=== PATIENT | female | born 1945 | race Caucasian/White ===

== ENCOUNTER 2023-05-08 09:59 | Outpatient (OUT) | payer MEDICARE, SELFPAY ==
--- NOTE | 2023-05-08 10:02 | MM_ITS ---
Patient Name: FESTUS CUNNINGHAM MR#: [id number] : 1945 Exam Date: 05/08/2023 Ordering Doctor: DR DAYRON ALLEN D.O. RADIOLOGY REPORT PROCEDURE: MM TOMOSYNTHESIS SCREENING BI COMPARISON: MG MAMM SCREEN 3D PETE CAD, 01/17/2022. MG MAMM SCREEN 3D PETE CAD, 12/26/2020. INDICATIONS: Screening Calculator Name NCI Breast Cancer Risk Assessment Tool 5 Year Breast Cancer Risk 2.30% Lifetime Breast Cancer Risk 4.70% Personal Breast Cancer No Personal Ovarian Cancer No Treatments None Family Cancers Brother with bladder cancer at age ~62; Grandmother-paternal with uterine cancer at age 64. LOCATION: [facility] BREAST COMPOSITION: Scattered areas fibroglandular density. FINDINGS: DIAGNOSTIC CATEGORY 2--BENIGN FINDING. NO CHANGE FROM COMPARISON. Scattered benign-appearing nodules are present. Scattered benign-appearing calcifications are present. Scattered benign-appearing lymph nodes are present. RIGHT BREAST: No significant suspicious finding. LEFT BREAST: No significant suspicious finding. RECOMMENDATIONS: ROUTINE MAMMOGRAM AND CLINICAL EVALUATION IN 12 MONTHS. PLEASE NOTE: A NORMAL MAMMOGRAM DOES NOT EXCLUDE THE POSSIBILITY OF BREAST CANCER. A CLINICALLY SUSPICIOUS PALPABLE LUMP SHOULD BE BIOPSIED. Dictated by: Kirk Espinoza MD on 05/09/2023 at 07:46 Approved by: Kirk Espinoza MD on 05/09/2023 at 07:48
== END 2023-05-08 10:00 | disposition home or self-care (01) ==
LOC: MAMMO 09:59
PROVIDERS: PCP Internal Medicine; Visit Provider Internal Medicine
DX: Z12.31 Encounter for screening mammogram for malignant neoplasm of breast (principal); Z80.52 Family history of malignant neoplasm of bladder; Z80.8 Family history of malignant neoplasm of other organs or systems
CPT/HCPCS: 77063; 77067

== ENCOUNTER 2024-07-02 10:09 | Outpatient (OUT) | payer MEDICARE, SELFPAY ==
--- NOTE | 2024-07-02 10:12 | MM_ITS ---
Patient Name: FESTUS CUNNINGHAM MR#: [id number] : 1945 Exam Date: 07/02/2024 Ordering Doctor: DR DAYRON ALLEN D.O. RADIOLOGY REPORT PROCEDURE: MM TOMOSYNTHESIS SCREENING BI COMPARISON: MM TOMOSYNTHESIS SCREENING BI, 05/08/2023. MG MAMM SCREEN 3D PETE CAD, 01/17/2022. INDICATIONS: Screening Calculator Name NCI Breast Cancer Risk Assessment Tool 5 Year Breast Cancer Risk 2.30% Lifetime Breast Cancer Risk 4.40% Personal Breast Cancer No Personal Ovarian Cancer No Treatments None Family Cancers Brother with bladder cancer at age ~62; Grandmother-paternal with uterine cancer at age 64. LOCATION: [facility] BREAST COMPOSITION: There are scattered areas of fibroglandular density. FINDINGS: DIAGNOSTIC CATEGORY 2--BENIGN FINDING. NO CHANGE FROM COMPARISON. Scattered benign-appearing calcifications are present. RIGHT BREAST: No significant suspicious finding. Square marker indicates a skin tag/mole 6 o'clock at the chest wall LEFT BREAST: No significant suspicious finding. RECOMMENDATIONS: ROUTINE MAMMOGRAM AND CLINICAL EVALUATION IN 12 MONTHS. PLEASE NOTE: A NORMAL MAMMOGRAM DOES NOT EXCLUDE THE POSSIBILITY OF BREAST CANCER. A CLINICALLY SUSPICIOUS PALPABLE LUMP SHOULD BE BIOPSIED. Dictated by: Kirk Espinoza MD on 07/02/2024 at 11:55 Approved by: Kirk Espinoza MD on 07/02/2024 at 11:57
== END 2024-07-02 10:10 | disposition home or self-care (01) ==
LOC: MAMMO 10:09
PROVIDERS: PCP Internal Medicine; Visit Provider Internal Medicine
DX: Z12.31 Encounter for screening mammogram for malignant neoplasm of breast (principal); Z80.52 Family history of malignant neoplasm of bladder; Z80.8 Family history of malignant neoplasm of other organs or systems
CPT/HCPCS: 77063; 77067

== ENCOUNTER 2024-11-27 10:01 | Outpatient (OUT) | payer MEDICARE, SELFPAY ==
--- OUTSIDE RECORDS SUMMARY | 2024-11-24 14:00 | XMS_ITS | Encounter Summary ---
Author Organization [facility] Address [address] [place] [address] Care Team Providers Care Autobody Technician Name Role Phone Fuentes Woodson MD Primary Care Provider [phone] Encounter Details Date Type Department Care Team (Latest Contact Info) Description 11/24/2024 2:00 PM EDT Ancillary Procedure [facility] [address] [place] [address] Encounter for checking and testing of cardiac pacemaker pulse generator (battery) Social History Tobacco Use Types Packs/Day Years Used Date Smoking Tobacco: Never Smokeless Tobacco: Never Alcohol Use Standard Drinks/Week Comments Never 0 (1 standard drink = 0.6 oz pur e alcohol) [place] Safety & Environment Answer Date Rec orded Fear of Current or Ex-Partner Not on file Emotionally Abused Not on file 08/15/2023 Physically Abused Not on file 08/15/2023 Sexually Abused Not on file 08/15/2023 Physically or Sexually Abused Not on file Sex and Gender Information Value Date Recorded Sex Assigned at Not on file Gender Identity Not on file Sexual Orientation Not on file documented as of this encounter Plan of Treatment Pending Results Name Type Priority Associated Diagnoses Date /Time Cardiac device check - In Clinic Implantable Cardiac Device Routine Encounter for checking and testing of cardiac pacemaker pulse generator (battery) 11/24/2024 5:39 PM EDT documented as of this encounter Visit Diagnoses Diagnosis Encounter for checking and testing of cardiac pacemaker pulse generator (battery) documented in this encounter Care Teams Autobody Technician Relationship Specialty Start Date End Date Fuentes Woodson MD [address] [place] [id number] PCP - General 10/03/22 documented as of this encounter
--- NOTE | 2024-11-27 10:00 | CA_ITS ---
Patient Name: FESTUS CUNNINGHAM MR#: [id number] : 1945 Exam Date: 11/27/2024 Ordering Doctor: BERNABE CRUMP CNP ECHOCARDIOGRAM REPORT PROCEDURE: CA ECHO DOPPLER COMPLETE INDICATIONS: Chronic systolic heart failure, pacemaker, hypertension, diabetes COMPARISON: None. DESCRIPTION: COMPLETE ECHOCARDIOGRAM Real-time transthoracic echocardiography with 2D, M-mode, spectral and color flow Doppler performed. QUALITY: Technical quality was fair. LEFT VENTRICLE: Normal chamber size. Normal left ventricular wall thickness. Systolic function is difficult to assess due to poor sound transmission but appears at the lower limits of normal. LV EF: Low normal left ventricular ejection fraction, (50%). DIASTOLIC: Grade I diastolic dysfunction. ATRIAL SEPTUM: Visually appears intact. LEFT ATRIUM: Moderate dilatation. RIGHT ATRIUM: Normal chamber size. RIGHT VENTRICLE: Normal chamber size. Normal right ventricular systolic function. TRICUSPID VALVE: Normal mobility and thickness. No stenosis with trivial regurgitation. No evidence of pulmonary hypertension. RVSP 30 mmHg MITRAL VALVE: Normal mobility and thickness. No evidence of mitral valve stenosis. There is no mitral annular calcification. No mitral regurgitation. AORTIC VALVE: Normal trileaflet appearance. No visible sclerosis. Normal leaflet mobility. No evidence of aortic valve stenosis. No aortic regurgitation. AORTIC ROOT: Normal diameter and appearance, measuring 2.9 cm. Ascending aorta is normal in size, measuring 3.1 cm. PULMONIC VALVE: Normal thickness and mobility. No stenosis. No regurgitation. PERICARDIUM: No evidence of pericardial effusion. IVC: Collapses with inspirations. PLEURA: CONCLUSION: 1. Normal left ventricular size and systolic function. Systolic function is difficult to assess due to poor sound transmission but appears at the lower limits of normal. Estimated LVEF is 50%. 2. Mild diastolic dysfunction. 3. Normal right ventricular size and systolic function. 4. No significant valvular dysfunction. 5. Normal right-sided pressures. Adult Echocardiography Procedure Report Left Ventricle LVEDD (3.7 - 5.6 cm): 5.38 cm LVESD (2.2 - 4.0 cm): 4.40 cm LVIVS thickness (0.6 - 1.2 cm): 0.97 cm LVPW thickness (0.5 - 1.0 cm): 0.93 cm e': 0.03 m/s E - e': 14.17 LVOT Max Gradient: 1.67 mm[Hg] LVOT Area (cm2): 0.65 m/s Peak Velocity (LVOT): 0.65 m/s LVOT Diameter 2.35 cm Left Atrium LA Volume Index (2D A2C): 46.29 ml/m2 Left Atrium Systolic Dimension: 4.07 cm Mitral Valve MV E to A Ratio: 0.60 Mitral Valve A-Wave Peak Velocity: 0.80 m/s Mitral Valve E-Wave Peak Velocity: 0.48 m/s Right Ventricle Aorta AO Root Diam: 2.94 cm Ascending Ao Diam: 3.07 cm Aortic Valve AoV Area (Peak Art): 2.35 cm2, 2.35 cm2 Peak Velocity(Antegrade Flow): 1.19 m/s Peak Gradient(Antegrade Flow): 5.66 mm[Hg] Tricuspid Valve Peak Velocity (Regurgitant Flow): 2.58 m/s Pulmonic Valve Peak Gradient: 4.18 mm[Hg], 5.35 mm[Hg] Right Atrium Right Atrium Systolic Pressure: 56.10 ml, 56.10 ml Dictated by: Meng Bell M.D. on 11/27/2024 at 17:43 Approved by: Meng Bell M.D. on 11/27/2024 at 17:47
--- OUTSIDE RECORDS SUMMARY | 2024-11-27 10:08 | XMS_ITS | Clinical Summary ---
Author Organization [facility] Address [address] [place] [address] Care Team Providers Care Refractory Grinder Operator Name Role Phone Fuentes Woodson MD Primary Care Provider [phone] Allergies No known active allergies Medications Medication Sig Dispensed Refills Start Date End Date Status acarbose (Precose) 100 mg tablet Take 100 mg by mouth in the morning and at bedtime. Active aspirin 81 mg EC tablet Take 81 mg by mouth in the morning. Active atorvastatin (Lipitor) 40 mg tablet Take 40 mg by mouth in the morning. Active montelukast (Singulair) 10 mg tablet Take 10 mg by mouth at bedtime. Active sacubitriL-valsartan (Entresto) 49-51 mg tablet Take 1 tablet by mouth in the morning and at bedtime. Active metoprolol succinate XL (Toprol-XL) 50 mg 24 hr tabletIndications:Paro xysmal supraventricular tachycardia Take 1 tablet (50 mg) by mouth in the morning. Do not crush or chew. 90 tablet 11/02/2024 5 Active Farxiga 10 mg Take 10 mg by mouth in the morning. 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 11/10/2024 Chronic systolic congestive heart failure 2022 Symptomatic bradycardia 10/03/2022 S/P placement of cardiac pacemaker 10/03/2022 Sinus node dysfunction 10/03/2022 Syncope and collapse 09/24/2022 Overview (09/24/2022): Added automatically from request for surgery [id number] Encounters Date Type Department Care Team Description 11/24/2024 2:00 PM EDT Ancillary Procedure [address] [address] Encounter for checking and testing of cardiac pacemaker pulse generator (battery) 11/10/2024 9:20 AM EDT Office Visit [address] [address] Rachna Joel CNP Chronic systolic heart failure (CMS/HCC) (Primary Dx); Sinus node dysfunction (CMS/HCC); S/P placement of cardiac pacemaker; Benign hypertensive heart disease with heart failure (CMS/HCC); Mixed hyperlipidemia 11/02/[address] [address] Uma Domínguez MA Paroxysmal supraventricular tachycardia 10/21/[address] [place] [address] Dirk Colvin MD Paroxysmal supraventricular tachycardia 09/07/2024 12:50 PM EDT Ancillary Procedure [facility] [address] [place] [address] Adjustment and management of cardiac pacemaker from Last 3 Months Family History Relation Name Status Comments Father Mother Social History Tobacco Use Types Packs/Day Years Used Date Smoking Tobacco: Never Smokeless Tobacco: Never Tobacco Cessation:Counseling Given: Not Answered Alcohol Use Standard Drinks/Week Comments Never 0 [...] on file Sexual Orientation Not on file Last Filed Vital Signs Vital Sign Reading Time Taken Comments Blood Pressure 135/82 11/10/2024 9:27 AM EDT Pulse 62 11/10/2024 9:27 AM EDT Temperature - - Respiratory Rate 16 09/24/2022 7:07 PM EDT Oxygen Saturation 93% 11/10/2024 9:27 AM EDT Inhaled Oxygen Concentration - - Weight 90.7 kg (200 lb) 11/10/2024 9:27 AM EDT Height 162.6 cm (5' 4 ) 11/10/2024 9:27 AM EDT Body Mass Index 34.33 11/10/2024 9:27 AM EDT Plan of Treatment Health Maintenance Due Date Last Done Comments Medicare Annual Wellness (AWV) 1945 Pneumococcal Vaccine: 65+ Ye ars (1 of 2 - PCV) 1952 Depression Screening 1958 Adult Tetanus 1968 Zoster Vaccines (1 of 2) 1996 Fall Risk Screening 2011 COVID-19 Vaccine ( - 2023-2 5 season) 2024 Influenza Vaccine (Season Ended) 2025 HIB Vaccines Aged Out No longer eligi ble based on patient's age to complete this topic HPV Vaccines Aged Out No longer eligi ble based on patient's age to complete this topic IPV Vaccines Aged Out No longer eligi ble based on patient's age to complete this topic Meningococcal B Vaccine Aged Out No l onger eligible based on patient's age to complete this topic Meningococcal Vaccine Aged Out No danuta brenda eligible based on patient's age to complete this topic Rotavirus Vaccines Aged Out No longer eligible based on patient's age to complete this topic Medical Devices Implanted Type Area Circular Distributor Device Identifier Shelf Expiration Date Model / Serial / Lot Ingevity+ Is-1 Bi Positive Fix Ra/Rv 52cm Implanted:Qty: 1 on 09/24/2022 by Dirk Colvin MD at [facility] Lead [employer] [id number] 09/05/2024 [id number] / [id number] / Ingevity+ Is-1 Bi Positive Fix Ra/Rv 45cm Implanted:Qty: 1 on 09/24/2022 by Dirk Colvin MD at [facility] Lead [employer] [id number] 09/12/2024 7840 / [id number] / Pacer,Whitney ,Mri Dr Nath - [id number] - [id number] Implanted:Qty: 1 on 09/24/2022 by Dirk Colvin MD at [facility] Pacemaker [employer] [id number] 07/17/2024 [id number] / [id number] / Procedures Procedure Name Priority Date/Time Associated Diagnosis Comments CARDIAC DEVICE CHECK CHECK - REMOTE Routine 10/28/2024 12:13 PM EDT Adjustment and management of cardiac pacemaker from Last 3 Months Results * CARDIAC DEVICE CHECK - REMOTE - PACEMAKER (10/28/2024 12:13 PM EDT) Dirk Colvin MD CV IMPLANTABLE CARDI AC DEVICE PROCEDURES CPACS from Last 3 Months Advance Directives * Full Code (Latest Code Status on File) Date Activated Date Inactivated Comments 09/24/2022 6:15 PM 09/24/2022 9:21 PM Care Teams Refractory Grinder Operator Relationship Specialty Start Date End Date Fuentes Woodson MD [address] [place] [id number] PCP - General 10/03/22
--- OUTSIDE RECORDS SUMMARY | 2024-11-27 10:08 | XMS_ITS | Referral Summary ---
Author Organization [facility] Address [address] [place] [address] Care Team Providers Care Men'S Furnishings Salesperson Name Role Phone Fuentes Woodson MD Primary Care Provider [phone] Encounters Date Type Department Care Team Description 11/24/2024 2:00 PM EDT Ancillary Procedure [facility] [address] [place] [address] Encounter for checking and testing of cardiac pacemaker pulse generator (battery) 11/10/2024 9:20 AM EDT Office Visit [facility] [address] [place] [address] Rachna Joel CNP Chronic systolic heart failure (CMS/HCC) (Primary Dx); Sinus node dysfunction (CMS/HCC); S/P placement of cardiac pacemaker; Benign hypertensive heart disease with heart failure (CMS/HCC); Mixed hyperlipidemia 11/02/2024 Refill [facility] [address] [place] [address] Uma Domínguez MA Paroxysmal supraventricular tachycardia 10/21/2024 Refill [facility] [address] [place] [address] Dirk Colvin MD Paroxysmal supraventricular tachycardia 09/07/2024 12:50 PM EDT Ancillary Procedure [facility] [address] [place] [id number] Adjustment and management of cardiac pacemaker from Last 3 Months Allergies No known active allergies Medications Medication [...] CRUSH OR CHEW* 90 tablet 3 10/21/2023 5 Discontinue d(Reorder) Active Problems Problem Noted Date Diagnosed Date 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 11/10/2024 Chronic systolic congestive heart failure 2022 Symptomatic bradycardia 10/03/2022 S/P placement of cardiac pacemaker 10/03/2022 Sinus node dysfunction 10/03/2022 Syncope and collapse 09/24/2022 Overview (09/24/2022): Added automatically from request for surgery [id number] Social History Tobacco Use Types Packs/Day Years [...] 11/10/2024 9:27 AM EDT Plan of Treatment Not on file Medical Devices Implanted Type Area Coat Baster Device Identifier Shelf Expiration Date Model / Serial / Lot Ingevity+ Is-1 Bi Positive Fix Ra/Rv 52cm Implanted:Qty: 1 on 09/24/2022 by Dirk Colvin MD at [facility] Lead [employer] [id number] 09/05/2024 [id number] / [id number] / Ingevity+ Is-1 Bi Positive Fix Ra/Rv 45cm Implanted:Qty: 1 on 09/24/2022 by Dirk Colvin MD at [facility] [employer] [id number] 09/12/2024 7840 / [id number] / Pacer,Accolade ,Mri Dr Nath - [id number] - [id number] Implanted:Qty: 1 on 09/24/2022 by Dirk Colvin MD at [facility] Pacemaker [employer] [id number] 07/17/2024 L331 / [id number] / Procedures Procedure Name Priority Date/Time Associated [...] 6:15 PM 09/24/2022 9:21 PM Care Teams Men'S Furnishings Salesperson Relationship Specialty Start Date End Date Fuentes Woodson MD [facility] [place] [address] PCP - General 10/03/22
== END 2024-11-27 10:02 | disposition home or self-care (01) ==
PROVIDERS: PCP Internal Medicine; Visit Provider Nurse Practitioner Family
DX: I50.22 Chronic systolic (congestive) heart failure (principal)
CPT/HCPCS: 93306